=== PATIENT | male | born 1970 | race Two or more races ===

== ENCOUNTER 2020-09-21 18:53 | Emergency (ER) | payer SELFPAY ==
[~2020-09-21] VITALS: Ht 167.6 cm; Wt 84.8 kg
[2020-09-21 19:35] VITALS: BP 132/96
--- NOTE | 2020-09-21 20:36 | NUR ---
CALLED [facility] [phone], UNABLE TO GET HOLD OFF STAFF REGARDING PT PLACEMENT.
--- NOTE | 2020-09-21 20:51 | NUR ---
PT PROVIDED WITH FOOD, [place] [facility] [employer]
--- NOTE | 2020-09-21 21:10 | NUR ---
Patient discharged to home in stable condition. Written and verbal after care instructions given. Patient verbalizes understanding of instruction.
== END 2020-09-22 06:15 | disposition home or self-care (01) ==
LOC: ER 18:55
DX: F10.129 Alcohol abuse with intoxication, unspecified (principal); Y90.9 Presence of alcohol in blood, level not specified